=== PATIENT | male | born 1960 | race Caucasian/White ===

== ENCOUNTER 2020-09-24 11:01 | Emergency (ER) | payer BC, OTHER ==
[~2020-09-24] VITALS: Ht 188 cm; Wt 77.1 kg
[2020-09-24] MEDS ORDERED: CHILDREN'S ASPI81 M1 PO (11:26)
[2020-09-24] MEDS ORDERED: EZALLOR SPRINKL10 MG PO (11:26)
[2020-09-24] MEDS ORDERED: NEURONTIN 300M300 M2 PO (11:28)
[2020-09-24 11:41] LABS: ABSOLUTE NEUTROPHILS 8.2 thou/uL (1.4-8.2); HEMATOCRIT 38.7 % (42.0-52.0); HEMOGLOBIN 13.4 gm/dL (14.0-18.0); LYMPHOCYTES 12.7 % (24.0-44.0); MCHC 34.6 g/dL (28.0-37.0); MCV 92.5 fL (80.0-100.0); MONOCYTES 9.2 % (1.0-8.0); PLATELET COUNT 434 thou/uL (150-400); POLYS 74.1 % (36.0-66.0); RBC 4.18 mil/uL (4.50-6.00); WBC 11.1 thou/uL (4.0-11.0)
[2020-09-24 11:48] LABS: CALCIUM 9.3 mg/dL (8.5-10.1); CREATININE 1.3 mg/dL (0.7-1.3); POTASSIUM 3.7 mmol/L (3.5-5.1)
[2020-09-24 11:52] LABS: APTT 22.3 Seconds (24.5-32.8); INR 1.05; PROTIME 11.4 Seconds (10.5-12.1)
[2020-09-24 11:54] LABS: ALBUMIN 2.9 g/dL (3.4-5.0); TOTAL BILIRUBIN 0.6 mg/dL (0.2-1.0)
--- NOTE | 2020-09-24 12:24 | EKG ---
[address] [place] [place] [address] ELECTROCARDIOGRAM REPORT Name: ADE LOWE Room #: REG ACE [place]#: [id number] Admission: 09/24/20 Attend Phys: Discharge: Date of : 64 Report #: [id number] [facility] ED Test Date: 2020-09-24 Test Time: 11:07:21 Pat Name: ADE LOWE Department: Room: Gender: Import Export Clerk: JCHAIDEVENDRA : 1960 Requested By: Anup Calderon Order Number: [id number] MD: Tomy Friedman Measurements Intervals [place] Rate: 110 P: 0 MN: 162 QRS: 50 QRSD: 98 T: -6 QT: 333 QTc: 451 Interpretive Statements Sinus tachycardia Otherwise no significant abnormality No previous ECG available for comparison Electronically Signed On 09-24-2020 12:24:34 CDT by Tomy Friedman [email or web address] <ELECTRONICALLY SIGNED> By: Tomy Friedman MD, [facility] 09/24/20 1224 1107 1107 Tomy Friedman MD, FACC /EPI
[2020-09-24 15:45] VITALS: BP 124/76
== END 2020-09-24 15:50 | disposition home or self-care (01) ==
LOC: ER 11:01
PROVIDERS: Emergency Medicine
DX: R06.00 Dyspnea, unspecified (principal); Z79.82 Long term (current) use of aspirin; Z79.899 Other long term (current) drug therapy; Z96.652 Presence of left artificial knee joint